=== PATIENT | female | born 1980 | race Caucasian/White ===

== ENCOUNTER → 2017-01-17 | Emergency (ER) | payer OTHER ==
[~2017-01-17] MED LIST: ACETAMINOPHEN 325 MG TABLET (FP) ONE; ACETAMINOPHEN 325 MG TABLET (FP) PO ONE; ALBUTEROL SO4 0.083% IH SOL 2.5 MG/3 ML VIAL.NEB. NEB ONE; AMOXICILLIN 500 MG CAPSULE (FP) ONE; AMOXICILLIN 500 MG CAPSULE (FP) PO ONE
[2017-01-17 04:17] VITALS: BMI 21.9
--- NOTE | 2017-01-17 04:24 | PDOC ---
History of Present Illness - General History Source: Patient Exam Limitations: No Limitations - History of Present Illness Initial Comments: 01/17/17 04:30 The patient is a 36 year old female, 18 weeks with a significant past medical history of seasonal allergies who presents to the ER with cough and shortness of breath for one week and right shoulder pain for two days. Patient reports she has been coughing persistently for one week, and worse since this afternoon. She has chest pain on cough and on inhalation. She also states the cough is worse while supine. She says the cough is productive with yellow phlegm. She says she has accompanied nasal congestion with clear mucus and shortness of breath while walking. On interview, patient complains of right shoulder pain. She reports she is able to move the right arm, and denies paresthesia or numbness to the area. Patient reports she has no complications with her current . Denies history of asthma Denies fever, chills Denies nausea, vomiting PCP: Dr. Nel Healy <Daisy Shaw - Last Filed: 01/17/17 04:30> - General History Source: Patient <Enrrique Le - Last Filed: 01/17/17 05:18> - General Chief Complaint: Cold Symptoms Stated Complaint: SOB/18 WKS Time Seen by Provider: 01/17/17 04:24 Past History <Daisy Shaw - Last Filed: 01/17/17 04:30> - Psycho/Social/Smoking Cessation Hx Anxiety: No Suicidal Ideation: No Smoking History: Never smoked Have you smoked in the past 12 months: No Information on smoking cessation initiated: No Hx Alcohol Use: No Drug/Substance Use Hx: No Substance Use Type: None <Enrrique Le - Last Filed: 01/17/17 05:18> - Past Medical History Allergies/Adverse Reactions: Allergies Allergy/AdvReac Type Severity Reaction Status Date / Time No Known Allergies Allergy Verified 01/17/17 04:13 Home Medications: Ambulatory Orders Albuterol Sulfate Inhaler - [Ventolin HFA Inhaler -] 2 inh IH Q6H #1 inh Amoxicillin - [Amoxicillin 500mg Capsule -] 500 mg PO TID #21 capsule 01/17/17 Loratadine [Claritin] 10 mg PO DAILY 01/17/17 Review of Systems - Review of Systems Able to Perform ROS?: Yes Comments:: 01/17/17 04:30 CONSTITUTIONAL: Absent: fever, no chills, no fatigue EYES: Absent: visual changes ENT: Present: nasal congestion Absent: ear pain, no sore throat CARDIOVASCULAR: Absent: chest pain, no palpitations RESPIRATORY: Present: cough, SOB GI: Absent: abdominal pain, no nausea, no vomiting, no constipation, no diarrhea GENITOURINARY: Absent: dysuria, no frequency, no hematuria MUSCULOSKELETAL: Present: right shoulder pain Absent: back pain, no arthralgia, no myalgia SKIN: Absent: rash NEURO: Absent: headache <UtsDaisy - Last Filed: 01/17/17 04:30> *Physical Exam - Vital Signs Last Vital Signs Temp Pulse Resp BP Pulse Ox 76 14 104/88 100 01/17/17 04:14 01/17/17 04:14 01/17/17 04:14 01/17/17 04:14 - Physical Exam Comments: 01/17/17 04:32 GENERAL: Well-appearing, well-nourished. No apparent distress. HEENT: Normocephalic, atraumatic. PERRL, EOM intact. CARDIOVASCULAR: Normal S1, S2. Regular rate and rhythm. PULMONARY: Scattered wheezing in the lower lung jimenes. ABDOMEN: Soft, non-distended, non-tender. EXTREMITIES: Normal ROM in all four extremities. No gross deformities. SKIN: Warm, dry. No rash NEUROLOGICAL: No focal neurological deficits. <NyалександрDaisy - Last Filed: 01/17/17 04:30> - Vital Signs Last Vital Signs Temp Pulse Resp BP Pulse Ox 76 14 104/88 100 01/17/17 04:14 01/17/17 04:14 01/17/17 04:14 01/17/17 04:14 <Enrrique Le - Last Filed: 01/17/17 05:18> ED Treatment Course - Medications Given in the ED: ED Medications Discontinued Medications Generic Name Dose Route Start Last Admin Trade Name Freq PRN Reason Stop Dose Admin Acetaminophen 650 mg 01/17/17 04:24 01/17/17 04:29 Tylenol - PO 01/17/17 04:25 650 mg ONCE ONE Administration <NysDaisy - Last Filed: 01/17/17 04:30> Medical Decision Making - Medical Decision Making 01/17/17 05:15 Dr. Le: The scribe's documentation has been prepared under my direction and personally reviewed by me in its entirery. I confirm that the note above accurately reflects all work, treatment, procedures, and medical decision making performed by me. Pt with URI, bronchospasm, and 18 weeks. No abdominal pain. No vaginal bleeding. Rx Albuterol inhaler, Amoxicillin <Enrrique Le - Last Filed: 01/17/17 05:18> *DC/Admit/Observation/Transfer - Attestations Scribe Attestion: 01/17/17 04:33 Documentation prepared by Daisy Shaw, acting as nurses medical assistants phlebotomists for Enrrique Le DO. <Daisy Shaw - Last Filed: 01/17/17 04:30> - Discharge Dispostion Admit: No <Enrrique Le - Last Filed: 01/17/17 05:18> Diagnosis at time of Disposition: Bronchospasm URI (upper respiratory infection) Qualifiers: URI type: unspecified viral URI Qualified Code(s): J06.9 - Acute upper respiratory infection, unspecified; B97.89 - Other viral agents as the cause of diseases classified elsewhere Qualifiers: Weeks of gestation: 18 weeks Qualified Code(s): Z3A.18 - 18 weeks gestation of - Discharge Dispostion Disposition: HOME Condition at time of disposition: Stable - Referrals Referrals: Nel Healy [Primary Care Provider] - - Patient Instructions Printed Discharge Instructions: DI for Viral Upper Respiratory Infection -- Adult, Medications and Print Language: EGYPTIAN
[2017-01-17 05:36] VITALS: BP 115/72; PULSE 84; TEMP 97.7
== END | disposition home or self-care (01) ==
LOC: JER 03:58
PROC: 3E0F7GC Introduction of Other Therapeutic Substance into Respiratory Tract, Via Natural or Artificial Opening (ICD-10-PCS; principal; 2017-01-17)
DX: J06.9 Acute upper respiratory infection, unspecified (principal); B97.89 Other viral agents as the cause of diseases classified elsewhere; Z3A.18 18 weeks gestation of pregnancy
CPT/HCPCS: 99283-25

== ENCOUNTER 2017-06-06 15:24 | Inpatient (IN) | payer OTHER ==
[2017-06-06 17:13] VITALS: BMI 25.3
[2017-06-06] MEDS ORDERED: ELECTROLYTE-148 SOLN 500 ML IV ONE (18:00)
[2017-06-06] MEDS ORDERED: ELECTROLYTE-148 SOLN 1,000 ML IV SCH ×2 (18:30→20:15)
[2017-06-06] MEDS ORDERED: CITRIC ACID/SODIUM CITRATE 30 ML UNIT-DOSE CUP PO ONE (19:15)
--- NOTE | 2017-06-06 20:12 | HP ---
Past Medical History - Admission Chief Complaint: Previous in labor History of Present Illness: 37 yo @ 38.6 weeks gestation, presents to L&D in labor. She had 2 previous ; she desires permanent sterilization. She's pre op for repeat and bilateral tubal ligation. History Source: Patient Limitations to Obtaining History: No Limitations - Past Medical History ...: 4 ...Para: 2 ...Term: 2 ...: 0 ...Spon : 1 ...Induced : 0 ...Multiple Gestation: 0 ...LMP: 09/10/16 ... Weeks Gestation by Dates: 38.3 ...EDC by Dates: 06/17/17 ...EDC by Sono: 06/17/17 - Past Surgical History Past Surgical History: Yes: Hx Myomectomy: No Hx Transabdominal Cerclage: No - Smoking History Smoking history: Never smoked Have you smoked in the past 12 months: No - Alcohol/Substance Use Hx Alcohol Use: No - Social History Usual Living Arrangement: Yes: With Spouse History of Recent Travel: No Home Medications - Allergies Allergies/Adverse Reactions: Allergies Allergy/AdvReac Type Severity Reaction Status Date / Time No Known Allergies Allergy Verified 06/06/17 15:50 - Home Medications Home Medications: Ambulatory Orders Vit #108/Iron/FA [ One Tablet] 1 each PO DAILY 06/06/17 Family Disease History - Family Disease History Family History: Unremarkable Review of Systems - Review of Systems Constitutional: reports: No Symptoms Eyes: reports: No Symptoms HENT: reports: No Symptoms Neck: reports: No Symptoms Cardiovascular: reports: No Symptoms Respiratory: reports: No Symptoms Gastrointestinal: reports: No Symptoms Genitourinary: reports: Pain Breasts: reports: No Symptoms Reported Musculoskeletal: reports: No Symptoms Integumentary: reports: No Symptoms Neurological: reports: No Symptoms Endocrine: reports: No Symptoms Hematology/Lymphatic: reports: No Symptoms Psychiatric: reports: No Symptoms Pain Intensity: 4 Physical Exam - Maternity Vital Signs: Vital Signs Temperature 98.6 F 06/06/17 18:00 Pulse Rate 66 06/06/17 19:00 Respiratory Rate 18 06/06/17 19:00 Blood Pressure 120/63 06/06/17 19:00 O2 Sat by Pulse Oximetry (%) Constitutional: Yes: Well Nourished Eyes: Yes: Conjunctiva Clear HENT: Yes: Atraumatic Neck: Yes: Supple Cardiovascular: Yes: Regular Rate and Rhythm Lungs: Clear to auscultation - Abdominal Exam/OB Intensity: Mild/Mod - Vaginal Exam/OB Vaginal Bleediing: No Presentation: Vertex/Position Station: -3 - Physical Exam ...Motor Strength: WNL Psychiatric: Yes: Alert, Oriented Problem List - Problems (1) Previous section complicating , antepartum condition or complication Code(s): O34.219 - MATERNAL CARE FOR UNSP TYPE SCAR FROM PREVIOUS DEL (2) Multiparity Code(s): Z64.1 - PROBLEMS RELATED TO MULTIPARITY Assessment/Plan Previous in labor Multiparity Pre op for repeat / BTL Consent signed Anesthesia to see patient
[2017-06-06] MEDS ORDERED: D5W-LR W/ 20 UNITS OXYTOCIN 1,000 ML IV ONE (20:38)
[2017-06-06] MEDS ORDERED: IBUPROFEN 600 MG TABLET (FP) PO PRN (20:59)
[2017-06-06] MEDS ORDERED: ONDANSETRON 4 MG/2 ML VIAL IVPB PRN (20:59)
[2017-06-06] MEDS ORDERED: morphine SULFATE/Preservative Free 0.5 MG/ML (1cc Syringe) SPIN ONE (20:59)
[2017-06-06] MEDS ORDERED: oxyCODONE HCL 5 MG TABLET PO PRN (21:24)
[2017-06-06] MEDS ORDERED: METHYLERGONOVINE MALEATE 0.2 MG/1 ML AMP IM PRN (21:24)
--- NOTE | 2017-06-06 21:35 | OP ---
Operative Note - Note: Operative Date: 06/06/17 Pre-Operative Diagnosis: Previous in labor / Multiparity Operation: Repeat Low Transverse / Bilateral tubal ligation Findings: Baby boy in cephalic presentation Post-Operative Diagnosis: Same as Pre-op Surgeon: Shalonda Yu Regional Education Coordinator: Jaocb Upton Anesthesia: Spinal Specimens Removed: Placenta Estimated Blood Loss (mls): 600
[2017-06-07] MEDS ORDERED: TUBERCULIN PPD 5 TU/0.1ML SYRINGE (IN PATIENT USE ONLY) ID ONE (00:45)
[2017-06-07 07:51] LABS: BASOPHIL 0.4 % (0-2.0); EOSINOPHIL 0.8 % (0-4.5); MCH 30.3 pg (25.7-33.7); MCHC 34.5 g/dl (32.0-36.0); MEAN CELL VOLUME 87.8 fl (80-96); MEAN PLT VOLUME 8.7 fl (7.5-11.1); NEUTROPHILS 80.2 % (42.8-82.8); PLATELET COUNT 183 K/MM3 (134-434); RDW 13.1 % (11.6-15.6); WHITE BLOOD COUNT 10.4 K/mm3 (4.0-10.0)
--- NOTE | 2017-06-07 08:17 | PN ---
Progress Note (short form) - Note Progress Note: Anesthesia Pain Pt seen and examined S:alert and oriented comfortable O: Vital Signs Temperature 98.2 F 06/07/17 06:00 Pulse Rate 79 06/07/17 06:00 Respiratory Rate 18 06/07/17 06:00 Blood Pressure 108/81 06/07/17 06:00 O2 Sat by Pulse Oximetry (%) 99 06/06/17 22:10 CBC, BMP 06/07/17 07:46 A/P: s/p c section doing well post op continue current care Markos Boyd MD
[2017-06-07] MEDS: FERROUS SO4 325 MG TABLET (FP) PO SCH ×2 (09:16→19:11)
[2017-06-07] MEDS: PRENATAL VITAMINS W/ FOLIC ACID TABLET (FP) PO SCH (09:17)
--- NOTE | 2017-06-07 09:53 | PN ---
Post Progress Note - Subjective Subjective: Pt seen/evaluated. Doing well post c section. Having some gas pains but otherwise feels well. No CP/SOB/F/C/THOMAS. Some VB. Tolerating clears. NO flatus yet. VB minimal. Type of Delivery: Repeat C/S Vital Signs: Vital Signs Temperature 98.2 F 06/07/17 06:00 Pulse Rate 79 06/07/17 06:00 Respiratory Rate 18 06/07/17 09:00 Blood Pressure 108/81 06/07/17 06:00 O2 Sat by Pulse Oximetry (%) 99 06/06/17 22:10 Uterus: Yes: Fundus @ umbilicus Incision: Yes: Dressing dry and intact Abdomen/GI: Yes: Abdomen soft, Tender, Tolerating PO. No: Passing flatus Lochia: Yes: Rubra Lochia, amount: Small Extremities: Yes: Calves non-tender. No: Edema Perineum: Yes: Intact Activity: Ambulating - Labs Labs: CBC WBC 10.4 K/mm3 (4.0-10.0) H 06/07/17 07:46 RBC 3.50 M/mm3 (3.60-5.2) L 06/07/17 07:46 Hgb 10.6 GM/dL (10.7-15.3) L D 06/07/17 07:46 Hct 30.7 % (32.4-45.2) L 06/07/17 07:46 MCV 87.8 fl (80-96) 06/07/17 07:46 MCH 30.3 pg (25.7-33.7) 06/07/17 07:46 MCHC 34.5 g/dl (32.0-36.0) 06/07/17 07:46 RDW 13.1 % (11.6-15.6) 06/07/17 07:46 Plt Count 183 K/MM3 (134-434) 06/07/17 07:46 MPV 8.7 fl (7.5-11.1) 06/07/17 07:46 Neutrophils % 80.2 % (42.8-82.8) 06/07/17 07:46 Lymphocytes % 12.7 % (8-40) 06/07/17 07:46 Monocytes % 5.9 % (3.8-10.2) 06/07/17 07:46 Eosinophils % 0.8 % (0-4.5) 06/07/17 07:46 Basophils % 0.4 % (0-2.0) 06/07/17 07:46 Problem List - Problems (1) Status post delivery Code(s): Z98.891 - HISTORY OF UTERINE SCAR FROM PREVIOUS SURGERY Assessment/Plan 37 y/o POD#1 s/p delivery - AFVSS - encourage ambulation - advance diet as tolerated, PO pain meds - routine post op care
[2017-06-07] MEDS: ACETAMINOPHEN 325 MG TABLET (FP) PO PRN ×2 (16:41→22:17)
[2017-06-07] MEDS: SIMETHICONE 80 MG TAB.CHEW (FP) PO PRN ×2 (16:41→22:17)
[2017-06-07] MEDS ORDERED: BISACODYL 10 MG SUPP.RECT RC PRN (21:24)
[2017-06-07] MEDS: IBUPROFEN 600 MG TABLET (FP) PO PRN (22:19)
[2017-06-08] MEDS: FERROUS SO4 325 MG TABLET (FP) PO SCH ×2 (08:00→17:11)
[2017-06-08] MEDS: PRENATAL VITAMINS W/ FOLIC ACID TABLET (FP) PO SCH (10:00)
[2017-06-08] MEDS: IBUPROFEN 600 MG TABLET (FP) PO PRN ×2 (11:17→21:02)
[2017-06-08] MEDS: SIMETHICONE 80 MG TAB.CHEW (FP) PO PRN ×2 (11:17→21:02)
[2017-06-08] MEDS: ACETAMINOPHEN 325 MG TABLET (FP) PO PRN ×2 (11:17→21:02)
[2017-06-08 22:15] VITALS: PULSE 72
[2017-06-09 07:04] LABS: BASOPHIL 0.5 % (0-2.0); MCH 29.9 pg (25.7-33.7); MCHC 34.2 g/dl (32.0-36.0); MEAN CELL VOLUME 87.3 fl (80-96); MEAN PLT VOLUME 8.2 fl (7.5-11.1); NEUTROPHILS 74.5 % (42.8-82.8); PLATELET COUNT 213 K/MM3 (134-434); RDW 13.4 % (11.6-15.6); WHITE BLOOD COUNT 9.4 K/mm3 (4.0-10.0)
[2017-06-09] MEDS: FERROUS SO4 325 MG TABLET (FP) PO SCH (08:03)
[2017-06-09] MEDS: SIMETHICONE 80 MG TAB.CHEW (FP) PO PRN (08:08)
[2017-06-09] MEDS: IBUPROFEN 600 MG TABLET (FP) PO PRN (08:08)
[2017-06-09] MEDS: ACETAMINOPHEN 325 MG TABLET (FP) PO PRN (08:09)
[2017-06-09] MEDS ORDERED: DIPHTH,PERTUSS(ACELL),TET 0.5 ML DISP.SYRIN IM ONE (10:00)
[2017-06-09] MEDS ORDERED: FLU VACC QS2017-18 36MOS UP/PF 60 MCG/0.5 ML SYRINGE IM ONE (10:00)
[2017-06-09] MEDS: PRENATAL VITAMINS W/ FOLIC ACID TABLET (FP) PO SCH (10:06)
[2017-06-09 12:29] VITALS: BP 101/57; TEMP 98
--- NOTE | 2017-06-10 14:50 | PATH ---
Surgical Pathology Report Patient Name: TAVIA REA [facility]. Rec. #: [id number] /Age/Gender: 1980 (Age: 37) / F Account: [id number] Location: [facility] OBS/[facility]AT [facility]TER Taken: 06/06/2017 Received: 06/07/2017 Reported: 06/10/2017 Physicians: Shalonda Yu M.D. Specimen(s) Received A: PLACENTA B: RIGHT FALLOPIAN TUBE C: LEFT FALLOPIAN TUBE Clinical History , 38.3 weeks, previous c/section 2007 and 2014 Repeat c/section and BTL Final Diagnosis A. PLACENTA, DELIVERY: INTACT, SMALL (<400 GM), THIRD TRIMESTER PLACENTA WITH MILD PREVILLOUS, PERIVILLOUS, AND PRECHORIONIC FIBRIN DEPOSITION, THREE VESSEL UMBILICAL CORD, AND UNREMARKABLE PLACENTAL MEMBRANES. B. FALLOPIAN TUBE, RIGHT, LIGATION: SEGMENT OF FALLOPIAN TUBE WITH COMPLETE CROSS SECTION. C. FALLOPIAN TUBE, LEFT, LIGATION: SEGMENT OF FALLOPIAN TUBE WITH COMPLETE CROSS SECTION. Electronically Signed Kushal Patel M.D. Gross Description A. The specimen is received fresh, labeled "placenta" and is a 376 gram, 18 x 14 x 2.2 cm placenta with attached membranes and umbilical cord. The attached membranes are glistening and translucent and insert marginally. The umbilical cord measures 47 cm in length and averages 1.2 cm in diameter. The cord inserts eccentrically, 6 cm. to the nearest margin. No true knots or strictures are identified. Cut surface of the umbilical cord reveals 3 vessels. The surface is baker-blue with fibrin deposition and appropriate caliber vessels. The maternal surface is lobulated and appears complete with no adherent blood clots or areas of thinning. Sectioning reveals red-brown, spongy parenchyma. No focal lesions are identified. Child Support Specialist sections are submitted in three cassettes as follows: 1- membrane rolls and umbilical cord; 2-3- full thickness sections of placenta. B. Received fresh labeled "right fallopian tube" is a 2 cm long x 0.6 cm in diameter portion of tissue consistent with a portion of fallopian tube. The fimbriated end is not identified. No focal lesions are identified. Sectioned and totally submitted in one cassette. C. Received fresh labeled "left fallopian tube" is a 2 cm long x 0.6 cm in diameter portion of tissue consistent with a portion of fallopian tube. The fimbriated end is not identified. No focal lesions are identified. Sectioned and totally submitted in one cassette. [facility]/06/07/2017 [facility]/06/07/2017
--- NOTE | 2017-06-27 08:28 | OP ---
DATE OF OPERATION: 06/06/2017 PREOPERATIVE DIAGNOSIS: Intrauterine at 38.6 weeks with previous section in labor. POSTOPERATIVE DIAGNOSIS: Intrauterine at 38.6 weeks with previous section in labor. PROCEDURE: Repeat low transverse section and bilateral tubal ligation. SURGEON: Shalonda Yu MD COIL BINDER: CHRISTINE Grullon ANESTHESIA: Spinal. COMPLICATIONS: None. ESTIMATED BLOOD LOSS: 600 mL. DESCRIPTION OF PROCEDURE: Patient was taken to the operating room where spinal anesthesia was administered. Patient was then prepped and draped in proper sterile fashion. A Pfannenstiel skin incision was made and carried down to through the underlying layer of fascia. The fascia was incised in the midline and extended laterally. The superior aspect of the fascial incision was then grasped with a Gerardo clamp, elevated, and the rectus muscles dissected off bluntly. Attention was then turned to the inferior aspect of the fascial incision which in a similar fashion was then grasped with Gerardo clamp, elevated, and the rectus muscle was dissected out bluntly. The rectus muscle was then in the midline. The peritoneum identified and entered sharply with the Metzenbaum scissors. The incision was extended superiorly and inferiorly with good visualization of the bladder. Then the vesicouterine peritoneum was then grasped with pickups and entered sharply with the Metzenbaum scissors. This incision was extended laterally, and a bladder flap created digitally. The bladder blade was then reinserted. Then a 10 blade was used to incise the lower uterine segment, and the head was delivered atraumatically. Nose and mouth were suctioned and the cord clamped and cut. The infant was handed to the awaiting nuclear weapons mechanical specialist. The placenta was removed manually. The uterus was exteriorized and cleared of all clots and debris. The uterine incision was repaired using 0 Biosyn in a running locked fashion. A second layer of the same suture was used as a means to provide excellent hemostasis. Then the pelvis was irrigated. The uterus was returned to the abdomen. The peritoneum was closed using 2-0 Biosyn. The fascia was reapproximated using 0 Vicryl in a running fashion. The skin was closed in a subcuticular fashion. Patient tolerated procedure well. Patient was taken to PACU in stable condition. PATHOLOGY: Placenta. Lolita NUNES/[id number]
== END 2017-06-09 14:00 | disposition home or self-care (01) | DRG 540 ==
LOC: JDEL 15:24 → JLDR 16:00 → J3W 23:30
PROVIDERS: ADMIT Obstetrics & Gynecology; ATTEND Obstetrics & Gynecology
PROC: 10D00Z1 Extraction of Products of Conception, Low, Open Approach (ICD-10-PCS; principal; 2017-06-06)
PROC: 0U570ZZ Destruction of Bilateral Fallopian Tubes, Open Approach (ICD-10-PCS; 2017-06-06)
DX: O34.211 Maternal care for low transverse scar from previous cesarean delivery (principal); Z3A.38 38 weeks gestation of pregnancy; Z30.2 Encounter for sterilization; Z37.0 Single live birth
CPT/HCPCS: 36415; 59025; 71020-TC; 85025; 88302-TC; 88307-TC; 90686; 90715; G0008